=== PATIENT | female | born 1985 | race Caucasian/White ===

== ENCOUNTER 2016-12-15 23:59 | Emergency (ER) | payer SELFPAY ==
[~2016-12-15 23:59] MED LIST: AMOXIL500 MG PO; ILOTYCIN1 GM OD; LODINE XL PO; MOTRIN400 M1 PO; NABUMETONE PO; NAMENDA10 MG PO; NO MEDICATIONS; PHENERGAN PO; PRENATAL FORMUL1 TA3 PO; SKELAXIN PO; ULTRAM PO
[2016-12-16 00:18] LABS: EOSINOPHIL# 0.1 X10e3 (0-0.7); EOSINOPHIL% 1.3 % (0.0-7.0); LYMPHOCYTE# 2.1 X10e3 (1.0-3.5); LYMPHOCYTE% 20.3 % (17.0-45.0); MEAN PLATELET VOLUME 9.2 FL (6.5-11.5)
[2016-12-16 00:23] LABS: BASOPHIL% 0.4 % (0-2.5); HEMATOCRIT 39.4 % (35.0-45.0); HEMOGLOBIN 13.1 gm/dL (12.0-16.0); MEAN CELL VOLUME 87.6 FL (83-96); MEAN CORPUSCULAR HGB CONC 33.1 g/dL (30-36); MONOCYTE# 0.7 X10e3 (0-1.0); MONOCYTE% 6.2 % (3.0-12.0); NEUTROPHIL# 7.5 X10e3 (1.5-7.1); NEUTROPHIL% 71.8 % (40-75); PLATELET COUNT 261 X10e3 (140-420); WHITE BLOOD COUNT 10.5 X10e3 (4.0-10.5)
[2016-12-16 00:27] LABS: INR 1.1; PROTHROMBIN TIME (PATIENT) 12.6 SECONDS (9.5-12.4)
[2016-12-16 00:28] LABS: DIFF IND NO
[2016-12-16 00:34] LABS: PARTIAL THROMBOPLASTIN TIME 24.4 SECONDS (25.6-38.1)
[2016-12-16 00:35] LABS: BUN/CREATININE RATIO 18.33; CALCIUM SERUM 8.3 mg/dL (8.4-10.2); CREATININE SERUM 0.6 mg/dL (0.6-1.4); GLOM FILT RATE Estimated 120.6 mL/min (>60); POTASSIUM 3.5 mmol/L (3.5-5.1)
== END 2016-12-16 05:14 ==
LOC: SED 23:59
PROVIDERS: Emergency Medicine
DX: N61.0 Mastitis without abscess (principal); E11.9 Type 2 diabetes mellitus without complications; F17.200 Nicotine dependence, unspecified, uncomplicated; Z98.51 Tubal ligation status
CPT/HCPCS: 36415; 80048; 84703; 85025; 85610; 85730; 87040; 96365; 96366; 99285; J3370